=== PATIENT | female | born 1995 | race Caucasian/White ===

== ENCOUNTER 2017-09-29 17:30 | Emergency (ER) | payer MEDICAID ==
[~2017-09-29] VITALS: Ht 165.1 cm; Wt 75.0 kg
[2017-09-29 17:33] VITALS: BP 107/64
== END 2017-09-29 18:57 | disposition home or self-care (01) ==
LOC: ED 18:45
DX: S93.492A Sprain of other ligament of left ankle, initial encounter (principal); S93.422A Sprain of deltoid ligament of left ankle, initial encounter; W10.9XXA Fall (on) (from) unspecified stairs and steps, initial encounter; Y93.01 Activity, walking, marching and hiking; Y92.89 Other specified places as the place of occurrence of the external cause; Y99.8 Other external cause status
CPT/HCPCS: 29515; 99284

== ENCOUNTER 2017-11-22 08:55 | Emergency (ER) | payer MEDICAID ==
[~2017-11-22] VITALS: Ht 160 cm; Wt 79.0 kg
[2017-11-22 09:37] LABS: BASOPHILS # (AUTO) 0.03 x10^3/uL (0-0.3); BASOPHILS % (AUTO) 0 % (0-1); EOSINOPHILS # (AUTO) 0.06 x10^3/uL (0-0.8); EOSINOPHILS % (AUTO) 1 % (1-7); LYMPHOCYTES # (AUTO) 2.14 x10^3/uL (1-6.1); LYMPHOCYTES % (AUTO) 22 % (22-44); MD NO; MEAN CORPUSCULAR HEMOGLOBIN 29.3 pg (27.0-34.8); MEAN CORPUSCULAR HGB CONC 33.4 g/dL (32.4-35.8); MEAN CORPUSCULAR VOLUME 87.7 fL (80-100); MEAN PLATELET VOLUME 8.2 fL (7.4-10.4); MONOCYTES # (AUTO) 0.86 x10^3/uL (0-1.4); MONOCYTES % (AUTO) 9 % (2-9); NEUTROPHILS # (AUTO) 6.75 x10^3/uL (1.8-8.0); NEUTROPHILS % (AUTO) 69 % (42-75); PLATELET COUNT 253 x10^3/uL (130-400); RED BLOOD COUNT 5.14 x10^6/uL (3.82-5.3); RED CELL DISTRIBUTION WIDTH 12.4 % (9.6-15.2)
[2017-11-22 10:00] LABS: ALANINE AMINOTRANSFERASE 28 U/L (12-78); ALBUMIN 3.8 g/dL (3.4-5.0); ANION GAP 8 mmol/L (5-15); CALCIUM 8.6 mg/dL (8.5-10.1); CHLORIDE 110 mmol/L (98-107); CREATININE 0.71 mg/dL (0.55-1.02)
[2017-11-22 10:04] LABS: ALKALINE PHOSPHATASE 77 U/L (45-117); BILIRUBIN,TOTAL 0.5 mg/dL (0.2-1.0); TOTAL PROTEIN 7.2 g/dL (6.4-8.2)
[2017-11-22 10:09] LABS: CULTURE INDICATED? YES; MICROSCOPIC INDICATED
[2017-11-22] MEDS ORDERED: SODIUM CHLORIDE FLUSH 10ML SYR IVF ONE (10:30)
[2017-11-22] MEDS ORDERED: OMNIPAQUE 350 MG/ML, 100ML BOTTLE ONE (10:33)
[2017-11-22 11:20] VITALS: BP 117/60
== END 2017-11-22 11:22 | disposition home or self-care (01) ==
LOC: ED 11:15
DX: N83.291 Other ovarian cyst, right side (principal)
CPT/HCPCS: 36415; 74177; 80053; 81001; 84703; 85025; 87086; 99285; Q9967

== ENCOUNTER 2017-12-14 20:28 | Emergency (ER) | payer MEDICAID ==
[~2017-12-14] VITALS: Ht 165.1 cm; Wt 80.1 kg
[2017-12-14 20:31] VITALS: BP 132/72
[2017-12-14] MEDS ORDERED: BUPIVACAINE 0.25% ONE (20:55)
[2017-12-14] MEDS ORDERED: LIDOCAINE-MPF 1%, 5ML INFIL ONE (21:00)
[2017-12-14] MEDS ORDERED: BUPIVACAINE 0.25% INFIL ONE (21:00)
[2017-12-14] MEDS ORDERED: BACITRACIN ZINC OINT 500U/GM, 0.9 GM ONE (22:10)
== END 2017-12-14 22:20 | disposition home or self-care (01) ==
LOC: ED 22:05
DX: L60.0 Ingrowing nail (principal)
CPT/HCPCS: 11730; 99283

== ENCOUNTER 2018-06-20 16:32 | Emergency (ER) | payer MEDICAID ==
[~2018-06-20] VITALS: Ht 160 cm; Wt 82.3 kg
[2018-06-20 16:49] VITALS: BP 135/80
--- NOTE | 2018-06-20 17:40 | NUR ---
FROM [facility] TO ROOM AT [facility] TIME
[2018-06-20] MEDS ORDERED: DEXAMETHASONE 4 MG TABLET ONE (18:00)
[2018-06-20] MEDS ORDERED: DEXAMETHASONE 4 MG TABLET PO ONE (18:00)
== END 2018-06-20 18:09 | disposition home or self-care (01) ==
LOC: ED 17:50
DX: H65.03 Acute serous otitis media, bilateral (principal)
CPT/HCPCS: 87081; 87880; 99283

== ENCOUNTER 2018-07-08 20:33 | Emergency (ER) | payer MEDICAID ==
[~2018-07-08] VITALS: Ht 165.1 cm; Wt 80.3 kg
[2018-07-08 20:42] VITALS: BP 133/60
== END 2018-07-08 21:47 | disposition home or self-care (01) ==
LOC: ED 21:41
DX: H92.03 Otalgia, bilateral (principal)
CPT/HCPCS: 99283; J7512

== ENCOUNTER 2018-11-01 21:18 | Emergency (ER) | payer MEDICAID ==
[~2018-11-01] VITALS: Ht 165.1 cm; Wt 81.1 kg
[2018-11-01] MEDS ORDERED: ONDANSETRON 2MG/ML, 2ML IVPush ONE (22:00)
[2018-11-01] MEDS ORDERED: PANTOPRAZOLE 40 MG IV IVPush ONE (22:00)
[2018-11-01] MEDS ORDERED: MORPHINE SULFATE 4 MG/ML, 1ML IVPush PRN (22:00)
[2018-11-01] MEDS ORDERED: SODIUM CHLORIDE FLUSH 10ML SYR IVF ONE (22:00)
[2018-11-01] MEDS ORDERED: ONDANSETRON 2MG/ML, 2ML ONE (22:11)
[2018-11-01] MEDS ORDERED: MORPHINE SULFATE 4 MG/ML, 1ML ONE (22:12)
[2018-11-01] MEDS ORDERED: PANTOPRAZOLE 40 MG IV ONE (22:12)
[2018-11-01 22:22] LABS: BASOPHILS # (AUTO) 0.05 x10^3/uL (0-0.3); BASOPHILS % (AUTO) 1 % (0-1); EOSINOPHILS # (AUTO) 0.04 x10^3/uL (0-0.8); EOSINOPHILS % (AUTO) 0 % (1-7); LYMPHOCYTES # (AUTO) 3.47 x10^3/uL (1-6.1); LYMPHOCYTES % (AUTO) 36 % (22-44); MD NO; MEAN CORPUSCULAR HEMOGLOBIN 30.1 pg (27.0-34.8); MEAN CORPUSCULAR HGB CONC 33.4 g/dL (32.4-35.8); MEAN CORPUSCULAR VOLUME 90.1 fL (80-100); MONOCYTES # (AUTO) 0.85 x10^3/uL (0-1.4); MONOCYTES % (AUTO) 9 % (2-9); NEUTROPHILS # (AUTO) 5.26 x10^3/uL (1.8-8.0); NEUTROPHILS % (AUTO) 54 % (42-75); PLATELET COUNT 305 x10^3/uL (130-400); RED BLOOD COUNT 4.76 x10^6/uL (3.82-5.3); RED CELL DISTRIBUTION WIDTH 12.9 % (9.6-15.2)
[2018-11-01 22:32] LABS: ALANINE AMINOTRANSFERASE 35 U/L (12-78); ALBUMIN 3.5 g/dL (3.4-5.0); ANION GAP 8 mmol/L (5-15); CALCIUM 9.1 mg/dL (8.5-10.1); CHLORIDE 111 mmol/L (98-107); CREATININE 0.91 mg/dL (0.55-1.02)
[2018-11-01 22:34] LABS: ALKALINE PHOSPHATASE 57 U/L (45-117); BILIRUBIN,TOTAL < 0.1 mg/dL (0.2-1.0); TOTAL PROTEIN 7.4 g/dL (6.4-8.2)
[2018-11-01 22:41] LABS: HCG UR SG 1.024 (1.003-1.030); MICROSCOPIC AUTO
[2018-11-01 22:43] LABS: CULTURE INDICATED? NO
[2018-11-01] MEDS ORDERED: MAALOX/HYOSCYAMINE/LIDOCAINE 45 ML BTL ONE (22:53)
[2018-11-01] MEDS ORDERED: MAALOX/HYOSCYAMINE/LIDOCAINE 45 ML BTL PO ONE (23:00)
[2018-11-01 23:12] VITALS: BP 104/57
== END 2018-11-02 00:19 | disposition home or self-care (01) ==
LOC: ED 22:15
DX: R10.13 Epigastric pain (principal); J45.909 Unspecified asthma, uncomplicated
CPT/HCPCS: 36415; 71045; 76700; 80053; 81001; 81025; 83690; 85025; 93005; 96374; 96375; 99284; C9113; J2270; J2405